=== PATIENT | male | born 1995 ===

== ENCOUNTER 2022-04-03 07:15 | Emergency (ER) | payer SELFPAY ==
[~2022-04-03] VITALS: Ht 175.3 cm; Wt 113.0 kg
[2022-04-03] MEDS ORDERED: LORAZEPAM 1MG TABLET PO ONE (07:30)
[2022-04-03 09:39] VITALS: BP 135/66
== END 2022-04-03 09:44 | disposition home or self-care (01) ==
LOC: ER 07:15
DX: F41.9 Anxiety disorder, unspecified (principal)
CPT/HCPCS: 93005; 99283